=== PATIENT | female | born 1995 | race African-American/Black ===

== ENCOUNTER 2019-04-02 11:12 | Emergency (ER) | payer MEDICAID, SELFPAY | END 2019-04-02 12:58 | disposition home or self-care (01) | LOC: ERS 11:12 | DX: L73.9 Follicular disorder, unspecified (principal) | CPT/HCPCS: 99282 ==

== ENCOUNTER 2019-12-26 13:16 | Emergency (ER) | payer OTHER ==
[2019-12-26 13:48] LABS: #Eosinphils 0.1 thou/uL (0.0-0.7); #Lymphocytes 1.3 thou/uL (1.20-3.40); #Monocytes 0.3 thou/uL (0.11-0.59); #Neutrophils 4.8 thou/uL (1.40-6.50); %Basophils 0.2 % (0.0-1.0); %Eosinophils 0.8 % (0.0-10.0); %Lymphocytes 19.5 % (21.0-51.0); %Neutrophils 74.5 % (42.0-75.0); Hemoglobin 11.7 g/dL (12.0-16.0); Mean Corpuscular HGB CONC 34.3 g/dL (32.0-36.0); Mean Corpuscular Hemoglobin 28.6 pg (27.0-31.0); Mean Corpuscular Volume 83.6 fL (78.0-98.0); Mean Platelet Volume 8.1 fL (7.4-10.4); Platelet Count 241 thou/uL (130-400); RBC Distribution Width 12.8 % (11.5-14.5); Red Blood Cell (RBC) Count 4.09 mill/uL (4.20-5.40); White Blood Cell (WBC) Count 6.5 thou/uL (4.8-10.8)
--- NOTE | 2019-12-26 14:51 | ULT ---
EXAM: OB ultrasound COMPARISON: None HISTORY: Pelvic pain in a female TECHNIQUE: Multiplanar grayscale and color Doppler images were obtained in a transabdominal ult rasound. FINDINGS: There is a single live intrauterine with heart rate of 159 bpm. Estimated weight is 195 g. Average age of the fetus based off today's examination is 17 weeks 1 day. BPD 3.70 cm -- 17 weeks 2 days HC 13.80 cm -- 17 weeks 1 day AC 11.89 cm -- 17 weeks 4 days FL 2.43 cm -- 17 weeks 2 days The placenta is posterior in location without focal abnormality. Amniotic fluid volume is subjectivel y within normal limits.. The cervix is normal in length. There is no evidence of placenta previa. IMPRESSION: Single live intrauterine with estimated age of 17 weeks 1 day.
[2019-12-26 16:48] LABS: ALT (SGPT) 29 U/L (8-55); AST (SGOT) 20 U/L (5-34); Albumin 3.4 g/dL (3.5-5.0); Alkaline Phosphatase 49 U/L (40-110); Anion Gap 11 mmol/L (10-20); BUN (Urea Nitrogen) 7 mg/dL (7.0-18.7); Bilirubin, Total 0.3 mg/dL (0.2-1.2); Calc. Creatinine Clearance 0 mL/min (70-130); Calcium 8.7 mg/dL (7.8-10.44); Carbon Dioxide 22 mmol/L (22-29); Chloride 108 mmol/L (98-107); Estimated GFR-MDRD Greater than 90; Globulin 3.1 g/dL (2.4-3.5); Glucose 89 mg/dL (70-105); Lipase 37 U/L (8-78); Potassium 3.9 mmol/L (3.5-5.1); Protein, Total 6.5 g/dL (6.0-8.3); Sodium 137 mmol/L (136-145)
[2019-12-26 17:00] LABS: Bacteria/HPF None Seen HPF (None Seen); Bilirubin Negative (Negative); Blood, Urine Negative (Negative); Clarity Clear (Clear); Glucose, Urine (Dipstick) Normal (Negative); Leukocyte 500 Leu/uL (Negative); Mucous/LPF Rare LPF (<2+); Nitrite Negative (Negative); Protein, Urine (Dipstick) 20 mg/dL (Neg-Trace); RBC/HPF 0-3 HPF (0-3); Urobilinogen Normal mg/dL (Less than 2)
[2019-12-26 17:34] LABS: Bacteria/HPF None Seen HPF (None Seen); Bilirubin Negative (Negative); Blood, Urine Negative (Negative); Clarity Clear (Clear); Glucose, Urine (Dipstick) Normal (Negative); Leukocyte 250 Leu/uL (Negative); Nitrite Negative (Negative); Protein, Urine (Dipstick) Negative (Neg-Trace); RBC/HPF 0-3 HPF (0-3); Squamous Epithelial 0-3 HPF (0-3); Urobilinogen Normal mg/dL (Less than 2)
== END 2019-12-26 17:48 | disposition home or self-care (01) ==
LOC: ERS 13:16
DX: O99.89 Other specified diseases and conditions complicating pregnancy, childbirth and the puerperium (principal); R10.2 Pelvic and perineal pain; R10.31 Right lower quadrant pain; O21.9 Vomiting of pregnancy, unspecified; O99.342 Other mental disorders complicating pregnancy, second trimester; F41.9 Anxiety disorder, unspecified; F32.9 Major depressive disorder, single episode, unspecified; Z3A.17 17 weeks gestation of pregnancy
CPT/HCPCS: 36415; 51701; 76815; 80053; 81003; 81015; 83690; 85025; 86900; 86901; 87086; A4353

== ENCOUNTER 2020-01-15 17:39 | Emergency (ER) | payer OTHER | END 2020-01-15 19:07 | disposition home or self-care (01) | LOC: ERS 17:39 | DX: O99.89 Other specified diseases and conditions complicating pregnancy, childbirth and the puerperium (principal); R10.30 Lower abdominal pain, unspecified; O99.342 Other mental disorders complicating pregnancy, second trimester; F41.9 Anxiety disorder, unspecified; F32.9 Major depressive disorder, single episode, unspecified; O99.512 Diseases of the respiratory system complicating pregnancy, second trimester; J45.909 Unspecified asthma, uncomplicated; Z3A.20 20 weeks gestation of pregnancy ==

== ENCOUNTER 2020-04-10 11:14 | Day surgery (SDC) | payer OTHER ==
[2020-04-10 11:50] VITALS: TEMP 98.2; BMI 38.4
[2020-04-10] MEDS ORDERED: hydrALAZINE 20 MG/ML VIAL SLOW IVP PRN (11:54)
--- NOTE | 2020-04-10 12:02 | PDOC.FPROB ---
FMR OB H&P: HPI - History of Present Illness Chief Complaint: Decreased movement Indentification: 24yo @ 32.3wks EGA by LMP History of Present Illness: Presents to L&D for evaluation of decreased movement. She states that baby usually wakes her in the morning, however this morning she didn't and was concerned. Since arriving to L&D she has felt a few kicks. She denies vaginal bleeding, vaginal discharge, LOF, or contractions. Primary Care Physician: KHUSHBU Dorado FMR OB H&P: Current - Care : 1 Para: 0 Gestational age: 32.2 Due date: 06/02/20 Dating Criteria: LMP/1T US Course/Complications: Syphilis during - OB Labs Blood type: A RH: positive HIV: negative RPR: positive (Most recent titer 1:4 (03/01/20). 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 H/o chlamydia prior to - Surgical History Sx History: None - Social History Social History: Denies tobacco, alcohol or illicit drug use. - Family History Family History: Family history positive for epilepsy in mother and siblings, diabetes and hypertension in other relatives. FMR OB H&P: Medications - Current Home Medications: Medication Instructions Recorded Confirmed Type Escitalopram Oxalate 10 mg PO DAILY 11/02/19 11/02/19 History Fluticasone Propionate [Flovent 1 puff INH ASDIR 11/02/19 11/02/19 History HFA] Pnv No.103/Folic/Om3s/Fish Oil 1 tab.chew PO DAILY 11/02/19 11/02/19 History [ Gummies] Allergies/Adverse Reactions: Allergies Allergy/AdvReac Type Severity Reaction Status Date / Time No Known Drug Allergies Allergy Verified 11/02/19 04:52 FMR OB H&P: ROS - Review of Systems General: denies: fever/chills, weight/appetite/sleep changes Eyes: denies: eye pain, vision changes ENT: denies: nasal congestion, rhinorrhea, sinus pain/pressure, sore throat Cardiovascular: denies: chest pain, palpitation, edema Respiratory: reports: shortness of breath ((asthma)). denies: cough, congestion Gastrointestinal: denies: abdominal pain, cramping, nausea, vomiting Genitourinary (Female): denies: incontinence, dysuria, vaginal pain, vaginal bleeding, vaginal mass/sore, contractions, vaginal pressure Musculoskeletal: denies: pain, stiffness Neurologic: denies: numbness, syncope, seizures, weakness Integumentary: denies: itching, rash, lesions Endocrine: denies: cold intolerance, heat intolerance Hematologic/Lymphatic: denies: prolonged or excessive bleeding FMR OB H&P: Vital Signs - Maternal Vital signs: Vital Signs - First Documented Temp 98.2 F 04/10/20 11:39 - Heart Tones Baseline: 130 (Reactive NST ) Variability: moderate Acceleration: present Deceleration: absent FMR OB H&P: Physical Exam - Physical Exam General: NAD, awake, alert and oriented HEENT: normocephalic and atraumatic, PERRLA, EOMI, MMM, grossly normal vision, grossly normal hearing Neck: supple, trachea midline Breast: symmetric Heart: RRR, normal S1/S2 General: CTAB, no respiratory distress, good air movement, no rales/rhonchi, no wheezing Abdomen: soft, gravid, non-tender Musculoskeletal: normal gait and station, pulses present Neurological: no tremor, no focal deficit Skin: no rash, good tugor Lymphatic: no unusual bruising or bleeding, no purpura Psychiatric: intact recent and remote memory, good judgement and insight, normal mood and affect FMR OB H&P: A/P - Problem List (1) Decreased movement Current Visit: Yes Status: Acute Code(s): O36.8190 - DECREASED MOVEMENTS, UNSP TRIMESTER, UNSP (2) Primigravida in third trimester Current Visit: Yes Status: Acute Code(s): Z34.03 - ENCNTR FOR SUPRVSN OF NORMAL FIRST PREG, THIRD TRIMESTER (3) Asthma Current Visit: No Status: Acute Code(s): J45.909 - UNSPECIFIED ASTHMA, UNCOMPLICATED (4) Latent syphilis with positive serology Current Visit: No Status: Acute Code(s): A53.0 - LATENT SYPHILIS, UNSPECIFIED EARLY OR LATE Disposition: sIUP, third trimester -complicated by syphilis during , asthma, and obesity. -follows w/ L Buse at [facility] for care, has first testing appt scheduled 04/15/20. -follows w/ M. decreased movement -will place on NST. Ordered BPP and growth scan. - movement has improved since arrival. -will give sprite and cookies, as patient has not eaten. syphilis, s/p treatment -s/p 3 treatments with PCN. -following [facility] and [facility] outpatient UPDATE: Reactive NST. BPP 07/09. [place] 36%. Patient feeling movement. Given return precautions, discussed kick counts. Will follow up at [facility] 2019. Discharged home. Discussion: Date/Time: 04/10/20 7430 This H&P was discussed with Dr. Pearson and Dr. Gann who agree with the above documentation and plan. Signature: Elsie NAGY PGY1 Addendum - Attending - Attending Attestation Date/Time: 04/10/20 1319 I personally evaluated the patient and discussed the management with Dr. Zuleta. I agree with the History, Examination, Assessment and Plan documented above with any addition or exceptions noted below. NST reactive at my exam. Awaiting BPP and Growth. If WNL, can d/c home and f/u outpatient.
--- NOTE | 2020-04-10 14:01 | ULT ---
EXAM: Complete obstetrical ultrasound Biophysical profile PROVIDED CLINICAL HISTORY: Decreased movement COMPARISON: None. FINDINGS: Number of gestations: Single. Presentation: Cephalic. Placental location: Posterior Previa: Placental margin approximately 3.3 cm from internal os. Cervical length: 4.6 cm MIRNA: 11.2 cm. heart rate: 143 bpm. Biparietal diameter: 7.85cm, 31 weeks 4 days, . Head circumference: 29.8 cm, 33 weeks 0 days, Abdominal circumference: 28.5 cm, 32 weeks 3 days, Femoral length: 6.2cm, 32 weeks 1 day, Estimated weight: 1951 g +/- 289g The average gestational age by ultrasound is 32 weeks 3 days. Biophysical profile: tone: 2/2 breathin/2 movement: 2/2 Amniotic fluid: 2/2 Total: 07/09 IMPRESSION: 1. Single live intrauterine gestation with size and dates as above. 2. Normal biophysical profile.
== END 2020-04-10 14:42 | disposition home health service (06) ==
LOC: L&D/OP 11:14
PROVIDERS: ATTEND Family Medicine
DX: O36.8130 Decreased fetal movements, third trimester, not applicable or unspecified (principal); O99.343 Other mental disorders complicating pregnancy, third trimester; F41.9 Anxiety disorder, unspecified; F32.9 Major depressive disorder, single episode, unspecified; O99.513 Diseases of the respiratory system complicating pregnancy, third trimester; J45.909 Unspecified asthma, uncomplicated; Z3A.32 32 weeks gestation of pregnancy; Z79.899 Other long term (current) drug therapy
CPT/HCPCS: 76815; 76819

== ENCOUNTER 2020-05-23 10:35 | Outpatient (CLI) | payer OTHER ==
[2020-05-24 13:49] LABS: SARS-CoV-2 MS2 Positive; SARS-CoV-2 N Gene Negative; SARS-CoV-2 S Gene Negative; SARS-CoV-2 orf1ab Negative
== END 2020-05-23 10:36 | disposition home or self-care (01) ==
LOC: LABBT 10:35
PROVIDERS: ATTEND Student in an Organized Health Care Education/Training Program
DX: Z01.818 Encounter for other preprocedural examination (principal); Z11.59 Encounter for screening for other viral diseases
CPT/HCPCS: 87635; U0003

== ENCOUNTER 2020-05-26 19:45 | Inpatient (IN) | payer OTHER ==
[~2020-05-26 19:45] MED LIST: Bupivacaine 0.25% HCL 30 ML VIAL ONE; Lidocaine 2% MPF 10 ML AMP (For Epidural Use) ONE; Oxytocin 10 UNITS/ML VIAL ONE; PHENYLEPHRINE-NS 100 MCG/ML 10 ML SYRINGE ONE; PROPOFOL 200 MG/20 ML VIAL ONE
[2020-05-26 20:55] VITALS: BMI 38.9
[2020-05-26] MEDS ORDERED: Ibuprofen 800 MG TAB PO PRN (21:12)
[2020-05-26] MEDS ORDERED: Docusate 100 MG CAP PO PRN (21:12)
[2020-05-26] MEDS ORDERED: Acetaminophen 500 MG TAB PO PRN (21:12)
[2020-05-26] MEDS ORDERED: NS / Oxytocin 40 units/1000ml 1,000 ML IV PRN (21:12)
[2020-05-26] MEDS ORDERED: Ondansetron PF 4 MG/2 ML Vial IVP PRN (21:12)
[2020-05-26] MEDS ORDERED: Lidocaine 1% (PF) 30 ML VIAL SC PRN (21:12)
[2020-05-26] MEDS ORDERED: Diphenoxylate HCl/Atropine Tablet PO PRN (21:12)
[2020-05-26] MEDS ORDERED: Butorphanol Tartrate 1 MG/ML VIAL SLOW IVP PRN (21:12)
[2020-05-26] MEDS ORDERED: Misoprostol 200 MCG TAB PR PRN (21:12)
[2020-05-26] MEDS ORDERED: Methylergonovine 0.2 MG/ML VIAL IM PRN (21:12)
[2020-05-26] MEDS ORDERED: Promethazine HCl 25 MG/ML VIAL IM PRN (21:12)
[2020-05-26] MEDS ORDERED: hydrALAZINE 20 MG/ML VIAL SLOW IVP PRN (21:12)
--- NOTE | 2020-05-26 21:12 | PDOC.FPROB ---
FMR OB H&P: HPI - History of Present Illness Chief Complaint: eIOL Indentification: at 39.0 wks by LMP c/w 10.0 wk sono History of Present Illness: 24 yo at 39.0 wks by LMP c/w 10.0 wk sono who presents for eIOL. She has history of anemia during , HSV II. She has been taking iron. Taking valacyclovir since 37 wks. She denies any active lesions. She has history of asthma requiring intermittent rescue inhaler but denies recent use. She denies LOPEZ, vision changes, chest pain, shortness of breath, abdominal pain, worsening LE edema, Cx, LOF, vaginal bleeding, discharge. She has history during this of trichomoniasis, syphilis with treatment. 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 Hx of syphilis, trich this - OB Labs Blood type: A RH: positive Antibody Screen: negative HIV: negative RPR: positive (1:4 titer) HepBsAg: negative Rubella: immune Gonorrhea: negative Chlamydia: negative GBS: positive H&H: 9.5/29.0 FMR OB H&P: History - Past Medical History PMH: Asthma, MDD, Obestiy - OB History OB History: Anemia of , Obesity, Hx of chlamydia - 10/19, Hx of Syphilis 11/19, Hx of Trich, Hx of 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 - Surgical History Sx History: None - Social History Social History: Denies tobacco, alcohol, drugs - Family History Family History: Mother: epilepsy, asthma Siblings: epilepsy, depression Maternal Great Uncle: Lung Cancer Maternal Grand Mother: DM, HTN FMR OB H&P: Medications - Current Home Medications: Medication Instructions Recorded Confirmed Type Fluticasone Propionate [Flovent 1 puff INH ASDIR 11/02/19 05/26/20 History HFA] Pnv No.103/Folic/Om3s/Fish Oil 1 tab.chew PO DAILY 11/02/19 05/26/20 History [ Gummies] Cephalexin [Keflex] 500 mg PO BID #10 capsule 04/27/20 05/26/20 Rx Clotrimazole 1% Cream [Lotrimin 1% 1 applic TOP DAILY 7 Days #1 tube 04/27/20 Rx Cream] Metronidazole [metroNIDAZOLE] 2,000 mg PO ONE #4 tab 05/02/20 05/26/20 Rx Allergies/Adverse Reactions: Allergies Allergy/AdvReac Type Severity Reaction Status Date / Time No Known Drug Allergies Allergy Verified 05/26/20 23:24 FMR OB H&P: ROS - Review of Systems General: denies: fever/chills, weight/appetite/sleep changes Eyes: denies: eye pain, vision changes ENT: denies: nasal congestion, rhinorrhea Cardiovascular: denies: chest pain, palpitation, edema Respiratory: denies: cough, congestion, shortness of breath Gastrointestinal: denies: abdominal pain, indigestion, nausea, vomiting, diarrhea Genitourinary (Female): denies: dysuria, hematuria, vaginal discharge Musculoskeletal: denies: stiffness, redness Neurologic: denies: syncope, weakness Integumentary: denies: rash, lesions FMR OB H&P: Vital Signs - Heart Tones Baseline: 140 Variability: moderate Acceleration: present FMR OB H&P: Physical Exam - Physical Exam General: NAD, awake, alert and oriented HEENT: PERRLA, EOMI Neck: FROM, no JVD Heart: RRR, normal S1/S2, no edema General: CTAB, no respiratory distress, good air movement Abdomen: soft, gravid, non-tender, bowel sound present Musculoskeletal: pulses present, FROM in all four extremities Neurological: cranial nerves II through XII intact, sensation to pain,touch and proprioception grossly normal Skin: no rash, capillary refill <2 seconds Lymphatic: no purpura, no petechia Psychiatric: intact recent and remote memory, good judgement and insight - Pelvic Exam Vulva: normal hair distribution, no masses, no lesions Cervix: no masses, no lesions SVE: 1/thick/high Membranes: Intact Presentation: Cephalic FMR OB H&P: A/P - Problem List (1) Herpes simplex antibody positive Current Visit: Yes Status: Acute Code(s): R89.4 - ABNORMAL IMMUNOLOG FINDINGS IN SPECIMENS FROM OTH ORG/TISS (2) Anemia affecting Current Visit: Yes Status: Acute Code(s): O99.019 - ANEMIA COMPLICATING , UNSPECIFIED TRIMESTER (3) Hx of sexually transmitted disease Current Visit: Yes Status: Acute Code(s): Z86.19 - PERSONAL HISTORY OF OTHER INFECTIOUS AND PARASITIC DISEASES (4) Asthma Current Visit: No Status: Acute Code(s): J45.909 - UNSPECIFIED ASTHMA, UNCOMPLICATED (5) Latent syphilis with positive serology Current Visit: No Status: Acute Code(s): A53.0 - LATENT SYPHILIS, UNSPECIFIED EARLY OR LATE (6) MDD (major depressive disorder) Current Visit: Yes Status: Acute Code(s): F32.9 - MAJOR DEPRESSIVE DISORDER , SINGLE EPISODE, UNSPECIFIED Disposition: Pt is a 24 yo at 39.0 weeks dated by LMP c/w 10.0 wk sono who presents for eIOL: # Term IUP here for eIOL 1/thick/high. FHT's 140's w/ accels, no decels. No herpes simplex lesions noted on external inspection and speculum exam. 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 Prior has tested positive for chlamydia. # Anemia of Hg 9.8 - repeat today # MDD - not currently taking medication - monitor after delivery in outpt setting # Hx of acute pancreatitis Dispo: Admit to L&D Discussion: Date/Time: 05/26/202111 This H&P was discussed with Dr. Kelley and Dr. Forrester who agree with the above documentation and plan. I Jonas Forrester, DO have read the above and agree with the business services intern resident. Addendum - Attending - Attending Attestation Date/Time: 05/26/202203 I personally evaluated the patient and discussed the management with Dr. Bailey I agree with the History, Examination, Assessment and Plan documented above with any addition or exceptions noted below. 24 yo female at 39 wks by LMP/10.0 wk sono here for IOL. Patient reports good FM. Denies LOF, ctx, VB. Denies vaginal or perineal lesions. VS reviewed. OB history reviewed. - IOL: Discussed options. Request miso. Cephalic on sono. - sIUP: IOB labs reviewed. Apos. Level II sono reviewed. 2T/3T labs negative. GBS pos. - hx of latent syphilis s/p treatment: Titer trended throughout . No s/ sx of recurrence. MFM followed. Appropriate growth. Reassuring testing. Titer pending for admission. No new sexual partners. - Trich pos: Recently treated. Will need DEVON in pp period. 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 Tested due to hx of STIs infections. Has been on ppx. No obvious lesions noted on exam at admission. Ok for SHADE. - obesity - anemia: Iron def. Has been on oral replacement. Will need to continue in pp period. - GBS pos: PCN Continuous monitoring. Miso to be placed shortly. Repeat exam in 4 hours. Apryl
[2020-05-26] MEDS ORDERED: NS w/ Oxytocin 10 units 500 ML IV SCH ×2 (21:15)
[2020-05-26] MEDS ORDERED: Penicillin G Potassium 5 MILL.UNITS in Sodium Chloride 0.9% 100 ML IVPB SCH (21:15)
[2020-05-26] MEDS ORDERED: Misoprostol 100 MCG TAB VAG SCH (22:00)
[2020-05-26 23:25] LABS: Hemoglobin 9.7 g/dL (12.0-16.0); Mean Corpuscular HGB CONC 32.4 g/dL (32.0-36.0); Mean Corpuscular Hemoglobin 26.6 pg (27.0-31.0); Mean Platelet Volume 9.8 fL (7.4-10.4); Platelet Count 202 thou/uL (130-400); RBC Distribution Width 14.4 % (11.5-14.5); Red Blood Cell (RBC) Count 3.63 mill/uL (4.20-5.40); White Blood Cell (WBC) Count 8.6 thou/uL (4.8-10.8)
[2020-05-27 00:04] LABS: Hep B Surf Ag Non-Reactive S/CO (NonReactive)
[2020-05-27 00:09] LABS: Syphilis Antibody Index 18.15 S/CO (<1.00 Non-Reactive)
[2020-05-27 01:47] LABS: Syphilis Antibody REACTIVE (Nonreactive)
--- NOTE | 2020-05-27 01:56 | PDOC.LDPN ---
Labor & Delivery Progress Note - Subjective Subjective: comfortable - Objective Vital signs reviewed and normal: yes General: NAD, resting Uterine fundus: non tender SVE: unchanged FHT: category 1 [place] contractions every: 2 to 3 mins - Assessment (1) Herpes simplex antibody positive Code(s): R89.4 - ABNORMAL IMMUNOLOG FINDINGS IN SPECIMENS FROM OTH ORG/TISS Current Visit: Yes Status: Acute (2) Anemia affecting Code(s): O99.019 - ANEMIA COMPLICATING , UNSPECIFIED TRIMESTER Current Visit: Yes Status: Acute (3) Hx of sexually transmitted disease Code(s): Z86.19 - PERSONAL HISTORY OF OTHER INFECTIOUS AND PARASITIC DISEASES Current Visit: Yes Status: Acute (4) Asthma Code(s): J45.909 - UNSPECIFIED ASTHMA, UNCOMPLICATED Current Visit: No Status: Acute (5) Latent syphilis with positive serology Code(s): A53.0 - LATENT SYPHILIS, UNSPECIFIED EARLY OR LATE Current Visit: No Status: Acute (6) MDD (major depressive disorder) Code(s): F32.9 - MAJOR DEPRESSIVE DISORDER, SINGLE EPISODE, UNSPECIFIED Current Visit: Yes Status: Acute Plan: continue plan of care -: Pt received 1 cytotec at 2330. Pen G has not been initiated. Will start at next check in 2 hours. FHT's reassuring - cat 1 strip. Addendum - Attending - Attending Attestation Date/Time: 05/27/20 0200 I personally evaluated the patient and discussed the management with Dr. Bailey I agree with the History, Examination, Assessment and Plan documented above with any addition or exceptions noted below. Cat 1 tracing. Ctx: every 2 to 3 min. patient mildly uncomfortable SVE: unchanged. Not able to place 2nd miso. Discuss balloon placement with patient to assist with cervical ripening. Apryl
--- NOTE | 2020-05-27 04:04 | PDOC.LDPN ---
Labor & Delivery Progress Note - Subjective Subjective: painful contractions - Objective Vital signs reviewed and normal: yes General: breathing through contractions Uterine fundus: palpable contractions SVE: unchanged FHT: category 1 - Assessment (1) Herpes simplex antibody positive Code(s): R89.4 - ABNORMAL IMMUNOLOG FINDINGS IN SPECIMENS FROM OTH ORG/TISS Current Visit: Yes Status: Acute (2) Anemia affecting Code(s): O99.019 - ANEMIA COMPLICATING , UNSPECIFIED TRIMESTER Current Visit: Yes Status: Acute (3) Hx of sexually transmitted disease Code(s): Z86.19 - PERSONAL HISTORY OF OTHER INFECTIOUS AND PARASITIC DISEASES Current Visit: Yes Status: Acute (4) Asthma Code(s): J45.909 - UNSPECIFIED ASTHMA, UNCOMPLICATED Current Visit: No Status: Acute (5) Latent syphilis with positive serology Code(s): A53.0 - LATENT SYPHILIS, UNSPECIFIED EARLY OR LATE Current Visit: No Status: Acute (6) MDD (major depressive disorder) Code(s): F32.9 - MAJOR DEPRESSIVE DISORDER, SINGLE EPISODE, UNSPECIFIED Current Visit: Yes Status: Acute Plan: continue plan of care -: Pt received 1 cytotec at 2330. She is mohinder too much for a second dose. Pen G has not been initiated. FHT's reassuring - cat 1 strip. Will discuss balloon placement with patient. Recheck at 0600 - hopefully can tolerate a second cytotec prior to 0600. Addendum - Attending - Attending Attestation Date/Time: 05/27/20 0403 I personally evaluated the patient and discussed the management with Dr. Bailey I agree with the History, Examination, Assessment and Plan documented above with any addition or exceptions noted below. Place balloon if patient agrees. Due to contraction pattern, unable to place 2nd miso. Apryl
--- NOTE | 2020-05-27 07:05 | PDOC.LDPN ---
Labor & Delivery Progress Note - Subjective Subjective: comfortable, vaginal pressure - Objective Vital signs reviewed and normal: yes General: resting SVE: 1.5/50/-3 - Assessment (1) Herpes simplex antibody positive Code(s): R89.4 - ABNORMAL IMMUNOLOG FINDINGS IN SPECIMENS FROM OTH ORG/TISS Current Visit: Yes Status: Acute (2) Anemia affecting Code(s): O99.019 - ANEMIA COMPLICATING , UNSPECIFIED TRIMESTER Current Visit: Yes Status: Acute (3) Hx of sexually transmitted disease Code(s): Z86.19 - PERSONAL HISTORY OF OTHER INFECTIOUS AND PARASITIC DISEASES Current Visit: Yes Status: Acute (4) Asthma Code(s): J45.909 - UNSPECIFIED ASTHMA, UNCOMPLICATED Current Visit: No Status: Acute (5) Latent syphilis with positive serology Code(s): A53.0 - LATENT SYPHILIS, UNSPECIFIED EARLY OR LATE Current Visit: No Status: Acute (6) MDD (major depressive disorder) Code(s): F32.9 - MAJOR DEPRESSIVE DISORDER, SINGLE EPISODE, UNSPECIFIED Current Visit: Yes Status: Acute Plan: continue plan of care -: Pt mohinder q1-3 mins, T's WNL. Pt is making slow progression - 1.5/50/- 3. Mohinder too much at this time. Consider balloon this morning. Addendum - Attending - Attending Attestation Date/Time: 05/27/20 0805 I personally evaluated the patient and discussed the management with Dr. Bailey I agree with the History, Examination, Assessment and Plan documented above with any addition or exceptions noted below. Place balloon. Start pit. Start penicillin. Apryl
[2020-05-27] MEDS ORDERED: Fentanyl 4 mcg/Bup 0.1% Cadd 100 ML ONE ×2 (08:00→11:21)
[2020-05-27] MEDS ORDERED: Ondansetron PF 4 MG/2 ML Vial IVP PRN ×2 (09:33→19:11)
[2020-05-27] MEDS ORDERED: EPHEDRINE 25 MG/5 ML SYRINGE SLOW IVP PRN (09:33)
[2020-05-27] MEDS ORDERED: Acetaminophen 325 MG TAB PO PRN (09:33)
[2020-05-27] MEDS ORDERED: Naloxone HCl 0.4 mg/ml Vial IVP PRN ×2 (09:33)
[2020-05-27] MEDS ORDERED: Lactated Ringer's 500 ML IV PRN (09:33)
[2020-05-27] MEDS ORDERED: Promethazine HCl 25 MG/ML VIAL IM PRN ×2 (09:33→19:11)
[2020-05-27] MEDS ORDERED: diphenhydrAMINE 50 MG/ML VIAL IVP PRN (09:33)
[2020-05-27] MEDS ORDERED: Communication Order-Pharmacy FS SCH (09:45)
[2020-05-27] MEDS ORDERED: Fentanyl 4 mcg/Bupivacaine 0.1% Cassette 100 ML EPIDURAL SCH (09:45)
--- NOTE | 2020-05-27 09:54 | PDOC.LDPN ---
Labor & Delivery Progress Note - Subjective Subjective: painful contractions - Objective Vital signs reviewed and normal: yes General: breathing through contractions (writhing in pain) SVE: 2 Effacement: 50% Station: -2 FHT: category 1, variability present Plan: continue plan of care -: - pt desires epidural - will allow for epidural. - upon recheck after epidural will consider placing balloon vs starting pitocin pending amount of cervical change. Addendum - Attending - Attending Attestation Date/Time: 05/27/20 2034 I personally evaluated the patient and discussed the management with Dr. Alfaro. I agree with the History, Examination, Assessment and Plan documented above with any addition or exceptions noted below. [place] is significantly more comfortable with epidural and are able to be consistently monitored. Making progress.
[2020-05-27] MEDS: Penicillin G 2.5 MILL.units 2.5 MILL.UNITS in Premix Bag 1 BAG IVPB SCH ×2 (10:12→14:12)
[2020-05-27] MEDS ORDERED: PHENYLEPHRINE-NS 100 MCG/ML 10 ML SYRINGE ONE ×2 (10:36→16:39)
[2020-05-27] MEDS ORDERED: Ondansetron PF 4 MG/2 ML Vial ONE ×2 (10:36→16:13)
[2020-05-27] MEDS ORDERED: PROPOFOL 200 MG/20 ML VIAL ONE (10:36)
[2020-05-27] MEDS ORDERED: Succinylcholine Chloride 20 MG/ML 10 ml SYRINGE FS ONE (10:36)
[2020-05-27] MEDS ORDERED: Dexamethasone 20 MG/5 ML VIAL ONE (10:36)
--- NOTE | 2020-05-27 12:06 | PDOC.LDPN ---
Labor & Delivery Progress Note - Subjective Subjective: comfortable, loss of fluid (reports "urinating on herself" prior to [place] placement) - Objective Vital signs reviewed and normal: yes General: NAD, resting SVE: 4 Effacement: 75% Station: -2 FHT: category 1, variability present [place] contractions every: 2-4 min Plan: continue plan of care -: - epidural in place - peng of 8, pt making good change after 1 dose of cytotec. - continue expectant mgmt - if contractions space out or no change on next check, may consider pitocin.
--- NOTE | 2020-05-27 14:23 | PDOC.LDPN ---
Labor & Delivery Progress Note - Subjective Subjective: painful contractions - Objective Vital signs reviewed and normal: yes General: breathing through contractions Uterine fundus: non tender Dilation: 4 Effacement: 75% Station: 0 FHT: category 2 (Mixed late and early decels, non recurrent, with minimal variability) [place] contractions every: 5-6 IUPC placed: yes FSE placed: yes Plan: pitocin for augmentation -: - Cervix unchanged since previous check, has descended mildly - 4/75/0 - Shen: 10 - Anesthesia to adjust epidural to improve patient comfort - IUPC and FSE placed, previously ruptured - Discussed with pt possibility of needing and Cat II strip remains persistent - Blood pressures climbing slowly, could be related to increase pain - 150/92 - Continue monitoring for severe range or features Plan: Pt has stopped making spontaneous change. FSE and IUPC to improve monitoring as pt's movement was making tracings difficult to discern. Addendum - Attending - Attending Attestation Date/Time: 05/27/20 6820 I personally evaluated the patient and discussed the management with Dr. Ceja. I agree with the History, Examination, Assessment and Plan documented above with any addition or exceptions noted below.
--- NOTE | 2020-05-27 15:19 | PDOC.BPN ---
- Brief Progress Note Patient have a few mild elevated BP. Cx: 4/80/0. FHT reviewed. Cat 22 since about 1:30. INterventions are IVF fluids and postionation chage. IUPC placed. FSE placed. Discussed possible if no resolution.
[2020-05-27] MEDS ORDERED: Bicitra 30 ML UDCUP ONE (15:49)
[2020-05-27] MEDS ORDERED: Dexamethasone 4 mg/ml Vial ONE (16:01)
[2020-05-27] MEDS ORDERED: MORPHINE 5 MG/10 ML PF VIAL ONE (16:01)
[2020-05-27] MEDS ORDERED: Fentanyl 250 MCG/5 ML VIAL ONE (16:01)
[2020-05-27 16:14] LABS: Actual Bicarbonate (HCO3v) 20 mEq/L (22-28); Base Excess -6.4 mEq/L (-2.0 to +3.0); Base Excess (BEa) -5.3 mEq/L (-2.0 to +3.0); pH (Cord, venous) 7.27 (7.32-7.43)
[2020-05-27] MEDS ORDERED: Oxytocin 10 UNITS/ML VIAL ONE (16:20)
--- NOTE | 2020-05-27 16:44 | RAD ---
Exam: 1 view abdomen HISTORY: Emergency . Normal caliber. Examination requested to ensure no retained surgical in struments, sponges or needles FINDINGS: Initial supine abdomen radiograph demonstrates a nonspecific bowel gas pattern. No suspicio us densities in the abdomen or pelvis. Normal osseous structures. IMPRESSION: No radiopaque foreign body. Results of study were conveyed to Ramo, the x-ray tech who is going to notify the ordering physician. Code CR
[2020-05-27] MEDS ORDERED: Azithromycin 500 MG VIAL ONE (17:34)
[2020-05-27] MEDS ORDERED: Azithromycin 500 MG in Sodium Chloride 0.9% 250 ML 250 ML IVPB SCH (18:00)
--- NOTE | 2020-05-27 18:17 | PDOC.OPDEL ---
OB Operative/Delivery Note Delivery Dr/Surgeon: Dr. Ceja Assist: Dr. Alfaro assist, Dr. Dooley attending Pre-Delivery Diagnosis: non-reassuring tracing ( bradycardia), ruptured membrane Procedure/Post Delivery Dx: primary low transverse CS - Findings A Sex: female - 1 min: 8 - 5 min: 9 - Additional Findings/Plan Placenta delivered: manual removal findings: low transverse hysterotomy with extension, normal uterus, normal tubes, normal ovaries Estimated blood loss: 676 Compilations/Other Findings: Procedure Note Date of Procedure: 05/27/2020 Resident Surgeon: Dr. Rafi Ceja Hog Man Surgeon: Dr. Kelly Alfaro Attending Surgeon: Dr. Nelson Dooley Procedure: Emergency Primary low transverse caesarean section via vertical skin incision Preoperative Diagnosis: 1)Term intrauterine 2) Bradycardia 3)GBS +, adequately treated 4)Elevated blood pressure readings Postoperative Diagnosis: 1) Same as above 2.) Uterine atony Anesthesia: General Indications: The patient is a 24 year old G1 now P1 female at 39.1 weeks gestation who was called for an emergency primary . Procedure in Detail: Risks, benefits of delivery were explained to the patient earlier in the patient's labor process and she expressed understanding. Patient developed a persistent Cat II strip followed by a prolonged deep late deceleration that did not recover in spite of position changes and oxygen administration. Nature of the emergency and need for addressed with mother and verbal consent given. Patient was immediately brought to the OR and anesthetized with general anesthesia. Pre-operative antibiotics included pen G for GBS+ status x3. She was placed in the supine position with a left tilt and prepped and draped in usual sterile fashion. A infra umbilical vertical laparotomy was made with a scalpel and carried down to the level of the peritoneum which was entered bluntly exposing the uterus. Bladder blade was placed. A low transverse score was made with the scalpel and the uterus was entered in the midline with the scalpel. Clear fluid was seen. The hysterotomy was extended in a cephalad-caudad fashion manually. The was noted to be vertex and was easily delivered by fundal pressure. Mouth and nares were bulb suctioned. Cord clamped and cut and grossly normal female was handed to waiting nurse. Cord blood was obtained. Placenta was manually extracted, found to be intact with 3 vessel cord and sent for path. The uterus was externalized and the endometrium was cleared with a dry lap. The bladder blade was replaced and the uterus was closed with a running locking #1 monocryl suture. 2 vertical uterine extensions on opposing inferior edges were then approximated with #0 chromic in a running fashion. A single area of bleeding tissue along the inferior margin near the left extension was addressed with 2 figure of 8 sutures. Following this hemostasis was noted. The abdomen cavity was inspected and cleared of blood. The uterus was internalized and the hysterotomy was again noted to be hemostatic. An Xray of the abdomen was taken per protocol for emergency surgeries. Radiology gave verbal report of no retained needles or instruments. The peritoneum was closed with #2-0 chromic in running fashion. The fascia was closed with a running non-locking 0-PDS suture. The subcutaneous tissue was irrigated and there were no bleeders. The subcutaneous tissue was closed with 2-0 plan suture by simple interrupted stitches. The skin was approximated with aarti and a pressure dressing was placed. All counts were correct. The patient tolerated the procedure well and was taken to the recovery room in stable condition. Delivery time: 1558 Quantative Blood Loss: 676 ml Complications: None Specimens: Cord blood sent to lab for blood type Findings: Grossly normal male with Apgars of 8 and 9. Grossly normal placenta with 3 vessel cord sent for path. Drains: Newberry to gravity draining clear urine Post delivery plan: routine recovery
[2020-05-27] MEDS ORDERED: Adacel (T-DAP) 0.5 ML SYRINGE IM ONE (19:11)
[2020-05-27] MEDS ORDERED: Lanolin Ointment 7 GM TUBE TOP PRN (19:11)
[2020-05-27] MEDS ORDERED: hydrALAZINE 20 MG/ML VIAL SLOW IVP PRN (19:11)
[2020-05-27] MEDS ORDERED: Misoprostol 200 MCG TAB PR PRN (19:11)
[2020-05-27] MEDS ORDERED: Simethicone Chewable 80 MG TAB PO PRN (19:11)
[2020-05-27] MEDS ORDERED: diphenhydrAMINE 25 MG CAP PO PRN (19:11)
[2020-05-27] MEDS ORDERED: Ibuprofen 800 MG TAB PO SCH (22:00)
[2020-05-27] MEDS: Ferrous Sulfate 325 MG TAB PO SCH (22:09)
--- NOTE | 2020-05-27 22:11 | PDOC.BPN ---
<Soumya Childress - Last Filed: 05/27/20 22:15> - Brief Progress Note 4 hour post note Patient had a pLTCS with vertical skin incision at 1558 due to NRFHT. Patient resting comfortably in bed. Patient endorses only mild pain to the incision site. Covered with gauze, cl/dry/in. Pain has been controlled on current pain regimen. Patient is tolerating cl liquid diet well. She has had good urine output. Denies any NVD, chest pain, palpitations, LE swelling, vision changes. She endorses mild headache since getting an epidural. She has not gotten up to walk around much. Denies passing flatus. VS have been stable, BPs have been at goal. She is successfully. Continue current pain regimen. Will continue to advance diet as tolerated. Will encourage ambulation in the AM. <Meena Kelley - Last Filed: 05/28/20 00:58> - Brief Progress Note Attending Note: Patient seen and examined along with resident. Agree with documentation above. Continue routine care. Removed Newberry as soon as spinal has resolved and patient can ambulate. Monitor lochia and wound. Apryl
[2020-05-27] MEDS ORDERED: Ketorolac Tromethamine 30 MG/ML VIAL IVP PRN (22:21)
[2020-05-28] MEDS: Docusate Calcium (SURFAK) 240 MG CAP PO SCH ×4 (00:39→22:32)
[2020-05-28] MEDS ORDERED: HYDROcodone/Acetaminophen 5/325 mg Tablet PO PRN (01:17)
[2020-05-28 05:59] LABS: Hemoglobin 8.3 g/dL (12.0-16.0); Mean Corpuscular HGB CONC 33.2 g/dL (32.0-36.0); Mean Corpuscular Hemoglobin 26.6 pg (27.0-31.0); Mean Corpuscular Volume 80.1 fL (78.0-98.0); Mean Platelet Volume 9.3 fL (7.4-10.4); Platelet Count 199 thou/uL (130-400); RBC Distribution Width 14.5 % (11.5-14.5); Red Blood Cell (RBC) Count 3.12 mill/uL (4.20-5.40); White Blood Cell (WBC) Count 19.5 thou/uL (4.8-10.8)
--- NOTE | 2020-05-28 06:15 | PDOC.PP ---
Post Progress Note Post Day #: POD #1 Subjective: Pt is resting. Pain well controlled. Tolerated full liquids overnight. RN about to remove Newberry catheter. SCDs on. PO intake tolerated: yes Flatus: yes Ambulation: no Vital Signs (12 hours) Temp Pulse Resp BP Pulse Ox 05/28/20 04:32 98.2 F 98 16 112/62 98 05/28/20 00:31 98.1 F 103 H 16 115/59 L 98 05/27/20 20:54 97.7 F 95 16 117/62 97 05/27/20 19:48 97.8 F 94 18 132/81 98 Weight Weight 96.615 kg - Physical Examination General: NAD Cardiovascular: no m/r/g, RRR Respiratory: clear to auscultation bilaterally Abdominal: appropriately TTP (mild distension, soft, decreased BS) Fundus firm & at: level of umbilicus Neurological: no gross focal deficits Psychiatric: A&Ox3 Result Diagrams: 05/28/20 05:47 Additional Labs: Post Labs Blood Type A POSITIVE 05/26/20 23:12 Hep Bs Antigen Non-Reactive S/CO (NonReactive) 05/26/20 23:12 (1) Anemia affecting Code(s): O99.019 - ANEMIA COMPLICATING , UNSPECIFIED TRIMESTER Status : Acute (2) Primigravida in third trimester Code(s): Z34.03 - ENCNTR FOR SUPRVSN OF NORMAL FIRST PREG, THIRD TRIMESTER Status: Acute - Assessment/Plan 24 yo F G1 now P1 delivered by pLTCS w/ vertical skin incision: POD #1, pLTCS for prolonged bradycardia: - postob Hgb 8.3 - encourage ambulation. Regular diet today. - continue pain mgmt. - routine cares. Addendum - Attending - Attending Attestation Date/Time: 05/28/20 0809 I personally evaluated the patient and discussed the management with Dr. Alfaro. I agree with the History, Examination, Assessment and Plan documented above with any addition or exceptions noted below.
[2020-05-28] MEDS: Prenatal Vitamin 1 TAB PO SCH (09:07)
[2020-05-28] MEDS: Ferrous Sulfate 325 MG TAB PO SCH ×2 (09:07→22:28)
[2020-05-28] MEDS: HYDROcodone/Acetaminophen 5/325 mg Tablet PO PRN ×2 (16:42→22:29)
[2020-05-28] MEDS ORDERED: Polyethylene Glycol 3350 17 GM Packet PO SCH (17:30)
[2020-05-28] MEDS: Ibuprofen 800 MG TAB PO PRN (22:28)
[2020-05-29] MEDS: Ibuprofen 800 MG TAB PO PRN (06:20)
--- NOTE | 2020-05-29 06:23 | PDOC.PP ---
Post Progress Note Post Day #: 2 Subjective: POD2 Had mild increase in pain last night at operative site Took 2 norco through the night which controlled Tolerating PO well without difficulty Ambulating frequently + flatus, no BM currently No headache, N/V, vision changes, worsening edema PO intake tolerated: yes Flatus: yes Ambulation: yes Vital Signs (12 hours) Temp Pulse Resp BP Pulse Ox 05/29/20 00:05 98.8 F 119 H 16 122/56 L 98 05/28/20 20:16 99.6 F 126 H 16 127/73 98 Weight Weight 96.615 kg - Physical Examination General: NAD Cardiovascular: RRR Respiratory: non-labored breathing Abdominal: lochia, appropriately TTP Fundus firm & at: below umbilicus Skin: CS incision dry & intact Neurological: no gross focal deficits Psychiatric: A&Ox3, normal affect Result Diagrams: 05/28/20 05:47 Additional Labs: Post Labs Blood Type A POSITIVE 05/26/20 23:12 Hep Bs Antigen Non-Reactive S/CO (NonReactive) 05/26/20 23:12 - Assessment/Plan 24 yo F G1 now P1 delivered by pLTCS w/ vertical skin incision: POD #2, pLTCS for prolonged bradycardia: - encourage ambulation. continue regular diet, pt tolerating well - some increased pain last night improved with prn norco, has required 2 doses total - changed ibuprofen to scheduled to improve pain control and limit opioid requirement - routine cares. Addendum - Attending - Attending Attestation Date/Time: 05/29/20 1606 I personally evaluated the patient and discussed the management with Dr. Ceja/ Dennis. I agree with the History, Examination, Assessment and Plan documented above with any addition or exceptions noted below. Doing well. Possible discharge today.
[2020-05-29 08:10] VITALS: TEMP 98.1
[2020-05-29] MEDS: Ibuprofen 800 MG TAB PO SCH ×2 (08:19→13:29)
[2020-05-29] MEDS: Prenatal Vitamin 1 TAB PO SCH (08:23)
[2020-05-29] MEDS: Ferrous Sulfate 325 MG TAB PO SCH (08:23)
[2020-05-29] MEDS: Docusate Calcium (SURFAK) 240 MG CAP PO SCH (08:24)
[2020-05-29 11:15] VITALS: BP 130/62
== END 2020-05-29 13:55 | disposition home or self-care (01) | DRG 787 ==
LOC: L&D 20:15 → 3SW 05-27 20:56
PROVIDERS: ADMIT Student in an Organized Health Care Education/Training Program; ATTEND Student in an Organized Health Care Education/Training Program
PROC: 10D00Z1 Extraction of Products of Conception, Low, Open Approach (ICD-10-PCS; principal; 2020-05-27)
DX: O76 Abnormality in fetal heart rate and rhythm complicating labor and delivery (principal); O98.52 Other viral diseases complicating childbirth; Z3A.39 39 weeks gestation of pregnancy; Z37.0 Single live birth; O99.02 Anemia complicating childbirth; D64.9 Anemia, unspecified; B00.9 Herpesviral infection, unspecified; O99.214 Obesity complicating childbirth; E66.9 Obesity, unspecified; F32.9 Major depressive disorder, single episode, unspecified; J45.909 Unspecified asthma, uncomplicated; O62.2 Other uterine inertia; R00.1 Bradycardia, unspecified
CPT/HCPCS: 36415; 51702; 74018; 82805; 85027; 86593; 86780; 86850; 86900; 86901; 87340; 88307; J0456; J0690; J1100; J1200; J1885; J2001; J2274; J2405; J2540; J2590; J2704; J3010; J3490; S0020